=== PATIENT | female | born 1995 | race Caucasian/White ===

== ENCOUNTER 2017-09-19 15:48 | Emergency (ER) | payer OTHER, SELFPAY ==
[2017-09-19 16:00] VITALS: BP 110/65; PULSE 56; RESP 18; TEMP 36.7; O2SAT 99; BMI 26.7
--- NOTE | 2017-09-19 17:00 | ED.PREGNANCY ---
HPI - <EDUARDO Maurer - Last Filed: 09/19/17 23:26> General Chief complaint: OB/Uterine Contractions Stated complaint: POSSIBLE MISCARRIAGE Time Seen by Provider: 09/19/17 16:47 Source: patient and family Mode of arrival: ambulatory Limitations: no limitations History of Present Illness HPI Narrative: Patient stated that she is about 4-5 weeks and started having vaginal bleeding today. Her last period started on August 06 approximately. She has several positive test at home. She states she has noted some light pink in her underwear for the past 2 days and then started a heavier flow today with clots. She denies any lightheadedness or dizziness. This is her 1st . She states she does have some lower belly cramping like is severe menstrual cramps. Related Data Home Medications Medication Instructions Recorded Confirmed PNV cmb#95-ferrous fumarate-FA 1 tab PO DAILY 09/19/17 09/19/17 [] multivitamin 1 tab PO DAILY 09/19/17 09/19/17 Allergies Allergy/AdvReac Type Severity Reaction Status Date / Time No Known Drug Allergies Allergy Verified 09/19/17 16:05 Review of Systems <EDUARDO Maurer - Last Filed: 09/19/17 23:26> Review of Systems GENERAL: Denies chills, fatigue, malaise, fever, sweats. HEENT: Denies sinus pain, ear pain, sore throat, difficulty swallowing, dizziness. RESPIRATORY: Denies dyspnea, cough, wheezing, hemoptysis, sputum. CARDIOVASCULAR: Denies chest pain, palpitations, orthopnea, edema, GASTROINTESTINAL: See HPI : See HPI MUSCULOSKELETAL: denies weakness, joint pain, or bony pain SKIN: Denies rash, skin lesions, or other NEUROLOGIC: Denies weakness, headache, numbness, change in speech, confusion, seizures, incoordination. PSYCHIATRIC: No concerning psychosocial issues. 12 point review of systems is negative except for those stated above Exam <EDUARDO Maurer - Last Filed: 09/19/17 23:26> Narrative Exam Narrative: GENERAL: This is a well-nourished, well-developed patient, crying with at bedside HEAD: Atraumatic. Normocephalic. No temporal or scalp tenderness. EYES: Pupils equal round and reactive. Extraocular motions intact. No scleral icterus. No injection or drainage. ENT: Nose without bleeding, purulent drainage or septal hematoma. Throat without erythema, tonsillar hypertrophy or exudate. Uvula midline. Airway patent. NECK: Trachea midline. No JVD or lymphadenopathy. Supple, nontender, no meningeal signs. CARDIOVASCULAR: Regular rate and rhythm without murmurs, gallops, or rubs. RESPIRATORY: Clear to auscultation. Breath sounds equal bilaterally. No wheezes, rales, or rhonchi. GASTROINTESTINAL: Abdomen soft, no guarding. Slight tenderness to palpation of the suprapubic area. EXTREMITIES: No clubbing, cyanosis, or edema. No joint tenderness, effusion, or edema noted. BACK: Nontender without deformity or crepitance. No flank tenderness. NEURO: AOx3. SKIN: No rash or erythema. Initial Vital Signs Initial Vital Signs: Vital Signs Temperature 98.1 F 09/19/17 16:00 Pulse Rate 56 L 09/19/17 16:00 Respiratory Rate 18 09/19/17 16:00 Blood Pressure 110/65 09/19/17 16:00 Pulse Oximetry 99 09/19/17 16:00 <Mathew Allen DO - Last Filed: 09/20/17 07:00> Initial Vital Signs Initial Vital Signs: Vital Signs Temperature 98.1 F 09/19/17 16:00 Pulse Rate 56 L 09/19/17 16:00 Respiratory Rate 18 09/19/17 16:00 Blood Pressure 110/65 09/19/17 16:00 Pulse Oximetry 99 09/19/17 16:00 Course <DEVANTE Maurer-BC - Last Filed: 09/19/17 23:26> Hospital Course: Patient presented with chief complaint of possible miscarriage. Her vital signs were stable. She had a pelvic ultrasound done which showed no ectopic and no intrauterine . Labs were taken and the patient was shown to be Rh negative. I discussed results and coarse with patient her several times throughout her stay. Patient had no questions or concerns upon discharge. Encouraged using support systems and follow up with primary care. Discussed coming back to the emergency department if any sudden worsening pain or severe vaginal bleeding. Orders Ordered: ED Orders 09/19/17 16:26 Urine Microscopic Stat 09/19/17 17:17 US pelvic complete Stat 09/19/17 17:33 ABO RH Type Stat Complete Blood Count AUTO DIFF Stat HCG Quantitative Stat Vital Signs - 8 hr 09/19/17 16:00 09/19/17 17:30 Temperature 98.1 F Pulse Rate 56 L Respiratory Rate 18 Blood Pressure 110/65 Blood Pressure [Left Arm] 108/64 Pulse Oximetry 99 100 <Mathew Allen DO - Last Filed: 09/20/17 07:00> Orders Ordered: ED Orders 09/19/17 16:26 Urine Microscopic Stat 09/19/17 17:17 US pelvic complete Stat 09/19/17 17:33 ABO RH Type Stat Complete Blood Count AUTO DIFF Stat HCG Quantitative Stat Vital Signs - 8 hr 09/19/17 16:00 09/19/17 17:30 Temperature 98.1 F Pulse Rate 56 L Respiratory Rate 18 Blood Pressure 110/65 Blood Pressure [Left Arm] 108/64 Pulse Oximetry 99 100 MDM - OB/Uterine Contractions <DEVANTE Maurer-BC - Last Filed: 09/19/17 23:26> Lab Data Attestation: I reviewed the patient's lab results. Result diagrams: 09/19/17 17:33 Lab Results 09/19/17 09/19/17 09/19/17 Range/Units 16:26 17:33 17:33 WBC 6.7 (4.5-11.0) X10^3/uL RBC 4.23 (4.0-5.2) X10^6/uL Hgb 12.3 (12.0-16.0) g/dL Hct 36.4 (36-46) % MCV 86.2 (80-100) fL MCH 29.0 (26-34) PG MCHC 33.6 (30-36) % RDW 13.3 (11.6-14.8) % Plt Count 174 (150-400) X10^3/uL Neut % (Auto) 57.4 (50-75) % Lymph % (Auto) 33.0 (25-40) % [place] % (Auto) 7.6 (3-14) % Eos % (Auto) 1.4 L (2-4) % Baso % (Auto) 0.6 (0-2) % Neut # (Auto) 3800 (6086-8012) /uL HCG, Quant 56.72 mIU/mL Urine RBC None seen (0-5/HPF) Urine WBC None seen (0-5/HPF) Urine Bacteria None seen (None) Ur Culture Indicated? Cult not indicated Micro UA Comment Microscopic normal Blood Type 09/19/17 Range/Units 17:33 WBC (4.5-11.0) X10^3/uL RBC (4.0-5.2) X10^6/uL Hgb (12.0-16.0) g/dL Hct (36-46) % MCV (80-100) fL MCH (26-34) PG MCHC (30-36) % RDW (11.6-14.8) % Plt Count (150-400) X10^3/uL Neut % (Auto) (50-75) % Lymph % (Auto) (25-40) % [place] % (Auto) (3-14) % Eos % (Auto) (2-4) % Baso % (Auto) (0-2) % Neut # (Auto) (8064-5392) /uL HCG, Quant mIU/mL Urine RBC (0-5/HPF) Urine WBC (0-5/HPF) Urine Bacteria (None) Ur Culture Indicated? Micro UA Comment Blood Type O Positive Imaging Data pelvic ultrasound: Radiologist's impression: [place] [address] Ultrasound Report Signed Patient: Carol Valdez MR#: [id number] : 1995 Acct:[id number] Age/Sex: 22 / F Date of Service: 09/19/17 Loc: ED Accession Number: [id number] Procedure: US pelvic complete Ordering Provider: Karol Ford [employer]INE [employer]- PROCEDURE: US PELVIC COMPLETE INDICATIONS: bleeding, + preg test TECHNIQUE: Real-time scanning was performed of the pelvic organs, with image documentation. Additional endovaginal scanning was necessary due to incomplete visualization of the adnexal and endometrial structures by transabdominal scanning. COMPARISON: None. FINDINGS: Transabdominal scanning: Limited scanning through the kidneys shows no hydronephrosis. No pathologic free abdominal or pelvic fluid. Small amount of free fluid within the pelvis is felt to be physiologic. Endovaginal scanning: Uterus: Uterus is normal in size at 8.4 x 4.0 x 4.7 cm. The endometrium measures 9 mm in combined thickness. No focal myometrial lesions are evident. Ovaries: The right ovary is mildly enlarged at 4.3 x 2.5 x 3.2 cm. Within the right ovary, there is a 1.9 x 1.5 x 1.5 cm area of decreased echogenicity, which may represent a recently ruptured cyst. The left ovary is normal in size without cystic or solid mass measuring 3.2 x 1.3 x 2.7 cm. IMPRESSION: 1. No intrauterine or extrauterine is evident. Correlation with beta hCG levels is present. A nonvisualized very early cannot be excluded. Please consider followup imaging in 1-2 weeks to reevaluate for viability and positioning. 2. Possible hemorrhagic right ovarian cyst. Dictated by: Oumar Marshall M.D. on 09/19/2017 at 18:23 Approved by: Oumar Marshall M.D. on 09/19/2017 at 18:30 MDM Narrative Medical decision making narrative: Patient presented with vaginal bleeding and 4-5 weeks . No ectopic or intrauterine was seen on ultrasound. Her beta hCG serum came back at 56. An ABO Rh came back as O positive. Thus I did not give her RhoGAM at this point time. I encourage follow up with primary care for future possible blood work or imaging. I discussed coming back to the emergency department if lightheaded, dizzy or sudden severe abdominal pain or severe vaginal bleeding. Her hemoglobin and hematocrit is stable at this point time. Patient has no questions or concerns. Encouraged follow-up with support system sooner better . was at her bedside throughout the visit. <Mathew Allen, - Last Filed: 09/20/17 07:00> Lab Data Lab Results 09/19/17 09/19/17 09/19/17 Range/Units 16:26 17:33 17:33 WBC 6.7 (4.5-11.0) X10^3/uL RBC 4.23 (4.0-5.2) X10^6/uL Hgb 12.3 (12.0-16.0) g/dL Hct 36.4 (36-46) % MCV 86.2 (80-100) fL MCH 29.0 (26-34) PG MCHC 33.6 (30-36) % RDW 13.3 (11.6-14.8) % Plt Count 174 (150-400) X10^3/uL Neut % (Auto) 57.4 (50-75) % Lymph % (Auto) 33.0 (25-40) % [place] % (Auto) 7.6 (3-14) % Eos % (Auto) 1.4 L (2-4) % Baso % (Auto) 0.6 (0-2) % Neut # (Auto) 3800 (8218-6582) /uL HCG, Quant 56.72 mIU/mL Urine RBC None seen (0-5/HPF) Urine WBC None seen (0-5/HPF) Urine Bacteria None seen (None) Ur Culture Indicated? Cult not indicated Micro UA Comment Microscopic normal Blood Type 09/19/17 Range/Units 17:33 WBC (4.5-11.0) X10^3/uL RBC (4.0-5.2) X10^6/uL Hgb (12.0-16.0) g/dL Hct (36-46) % MCV (80-100) fL MCH (26-34) PG MCHC (30-36) % RDW (11.6-14.8) % Plt Count (150-400) X10^3/uL Neut % (Auto) (50-75) % Lymph % (Auto) (25-40) % [place] % (Auto) (3-14) % Eos % (Auto) (2-4) % Baso % (Auto) (0-2) % Neut # (Auto) (3264-1304) /uL HCG, Quant mIU/mL Urine RBC (0-5/HPF) Urine WBC (0-5/HPF) Urine Bacteria (None) Ur Culture Indicated? Micro UA Comment Blood Type O Positive Discharge Plan Departure Patient Disposition: Home, Self-Care Clinical Impression: Spontaneous miscarriage Discharge Date/Time: 09/19/17 18:57 Interventions: ED Discharge Assessment Last Done: 09/19/17 18:56 Instructions: Dealing With Miscarriage, DI for Miscarriage Activity Restrictions/Additional Instructions: You came in today for vaginal bleeding during early . Ultrasound showed no intrauterine or ectopic . I would like you to follow up with your primary care provider. Come back to the emergency department for any severe bleeding, dizziness or lightheadedness. Prescriptions: No Action multivitamin Tablet 1 tab PO DAILY RF: 0 PNV cmb#95-ferrous fumarate-FA [] 28 mg iron- 800 mcg Tablet 1 tab PO DAILY RF: 0 Referrals: Provider,Conversion [Non-Staff] - <Mathew Allen DO - Last Filed: 09/20/17 07:00> Cosign ED Attending Zoey Attestation: I was available for consultation during this patient's emergency department encounter
--- NOTE | 2017-09-19 17:17 | DI.US.S_ITS ---
PROCEDURE: US PELVIC COMPLETE INDICATIONS: bleeding, + preg test TECHNIQUE: Real-time scanning was performed of the pelvic organs, with image documentation. Additional endovaginal scanning was necessary due to incomplete visualization of the adnexal and endometrial structures by transabdominal scanning. COMPARISON: None. FINDINGS: Transabdominal scanning: Limited scanning through the kidneys shows no hydronephrosis. No pathologic free abdominal or pelvic fluid. Small amount of free fluid within the pelvis is felt to be physiologic. Endovaginal scanning: Uterus: Uterus is normal in size at 8.4 x 4.0 x 4.7 cm. The endometrium measures 9 mm in combined thickness. No focal myometrial lesions are evident. Ovaries: The right ovary is mildly enlarged at 4.3 x 2.5 x 3.2 cm. Within the right ovary, there is a 1.9 x 1.5 x 1.5 cm area of decreased echogenicity, which may represent a recently ruptured cyst. The left ovary is normal in size without cystic or solid mass measuring 3.2 x 1.3 x 2.7 cm. IMPRESSION: 1. No intrauterine or extrauterine is evident. Correlation with beta hCG levels is present. A nonvisualized very early cannot be excluded. Please consider followup imaging in 1-2 weeks to reevaluate for viability and positioning. 2. Possible hemorrhagic right ovarian cyst. Dictated by: Oumar Marshall M.D. on 09/19/2017 at 18:23 Approved by: Oumar Marshall M.D. on 09/19/2017 at 18:30
[2017-09-19 17:30] VITALS: BP 108/64; O2SAT 100
[2017-09-19 17:54] LABS: Add Manual Diff / Slide Review NO; Basophils Percent Auto 0.6 % (0-2); Eosinophils Percent Auto 1.4 % (2-4); Hematocrit 36.4 % (36-46); Hemoglobin 12.3 g/dL (12.0-16.0); Mean Corpuscular HGB Conc 33.6 % (30-36); Mean Corpuscular Volume 86.2 fL (80-100); Monocytes Percent Auto 7.6 % (3-14); Neutrophils Absolute Auto 3800 /uL (3000-5900); Neutrophils Percent Auto 57.4 % (50-75); Platelet Count 174 X10^3/uL (150-400); Red Blood Cell Count 4.23 X10^6/uL (4.0-5.2); Red Cell Distribution Width 13.3 % (11.6-14.8); White Blood Cell Count 6.7 X10^3/uL (4.5-11.0)
[2017-09-19 18:22] LABS: HCG Quantitative /Beta subunit 56.72 mIU/mL
[2017-09-19 18:32] LABS: Bacteria Urine None Seen; RBC Urine None Seen (0-5/HPF); WBC Urine None Seen (0-5/HPF)
[2017-09-19 18:39] LABS: Culture Indicated Urine Cult Not Indicated; Urine Comments Microscopic Normal
--- NOTE | 2017-09-19 18:47 | ED_ITS ---
HPI - <EDUARDO Maurer - Last Filed: 09/19/17 23:26> General Chief complaint: OB/Uterine Contractions Stated complaint: POSSIBLE MISCARRIAGE Time Seen by Provider: 09/19/17 16:47 Source: patient and family Mode of arrival: ambulatory Limitations: no limitations History of Present Illness HPI Narrative: Patient stated that she is about 4-5 weeks and started having vaginal bleeding today. Her last period started on August 06 approximately. She has several positive test at home. She states she has noted some light pink in her underwear for the past 2 days and then started a heavier flow today with clots. She denies any lightheadedness or dizziness. This is her 1st . She states she does have some lower belly cramping like is severe menstrual cramps. Related Data Home Medications Medication Instructions Recorded Confirmed PNV cmb#95-ferrous fumarate-FA 1 tab PO DAILY 09/19/17 09/19/17 [] multivitamin 1 tab PO DAILY 09/19/17 09/19/17 Allergies Allergy/AdvReac Type Severity Reaction Status Date / Time No Known Drug Allergies Allergy Verified 09/19/17 16:05 Review of Systems <EDUARDO Maurer - Last Filed: 09/19/17 23:26> Review of Systems GENERAL: Denies chills, fatigue, malaise, fever, sweats. HEENT: Denies sinus pain, ear pain, sore throat, difficulty swallowing, dizziness. RESPIRATORY: Denies dyspnea, cough, wheezing, hemoptysis, sputum. CARDIOVASCULAR: Denies chest pain, palpitations, orthopnea, edema, GASTROINTESTINAL: See HPI : See HPI MUSCULOSKELETAL: denies weakness, joint pain, or bony pain SKIN: Denies rash, skin lesions, or other NEUROLOGIC: Denies weakness, headache, numbness, change in speech, confusion, seizures, incoordination. PSYCHIATRIC: No concerning psychosocial issues. 12 point review of systems is negative except for those stated above Exam <EDUARDO Maurer - Last Filed: 09/19/17 23:26> Narrative Exam Narrative: GENERAL: This is a well-nourished, well-developed patient, crying with at bedside HEAD: Atraumatic. Normocephalic. No temporal or scalp tenderness. EYES: Pupils equal round and reactive. Extraocular motions intact. No scleral icterus. No injection or drainage. ENT: Nose without bleeding, purulent drainage or septal hematoma. Throat without erythema, tonsillar hypertrophy or exudate. Uvula midline. Airway patent. NECK: Trachea midline. No JVD or lymphadenopathy. Supple, nontender, no meningeal signs. CARDIOVASCULAR: Regular rate and rhythm without murmurs, gallops, or rubs. RESPIRATORY: Clear to auscultation. Breath sounds equal bilaterally. No wheezes , rales, or rhonchi. GASTROINTESTINAL: Abdomen soft, no guarding. Slight tenderness to palpation of the suprapubic area. EXTREMITIES: No clubbing, cyanosis, or edema. No joint tenderness, effusion, or edema noted. BACK: Nontender without deformity or crepitance. No flank tenderness. NEURO: AOx3. SKIN: No rash or erythema. Initial Vital Signs Initial Vital Signs: Vital Signs Temperature 98.1 F 09/19/17 16:00 Pulse Rate 56 L 09/19/17 16:00 Respiratory Rate 18 09/19/17 16:00 Blood Pressure 110/65 09/19/17 16:00 Pulse Oximetry 99 09/19/17 16:00 <Mathew Allen DO - Last Filed: 09/20/17 07:00> Initial Vital Signs Initial Vital Signs: Vital Signs Temperature 98.1 F 09/19/17 16:00 Pulse Rate 56 L 09/19/17 16:00 Respiratory Rate 18 09/19/17 16:00 Blood Pressure 110/65 09/19/17 16:00 Pulse Oximetry 99 09/19/17 16:00 Course <DEVANTE Maurer-BC - Last Filed: 09/19/17 23:26> Hospital Course: Patient presented with chief complaint of possible miscarriage. Her vital signs were stable. She had a pelvic ultrasound done which showed no ectopic and no intrauterine . Labs were taken and the patient was shown to be Rh negative. I discussed results and coarse with patient her several times throughout her stay. Patient had no questions or concerns upon discharge. Encouraged using support systems and follow up with primary care. Discussed coming back to the emergency department if any sudden worsening pain or severe vaginal bleeding. Orders Ordered: ED Orders 09/19/17 16:26 Urine Microscopic Stat 09/19/17 17:17 US pelvic complete Stat 09/19/17 17:33 ABO RH Type Stat Complete Blood Count AUTO DIFF Stat HCG Quantitative Stat Vital Signs - 8 hr 09/19/17 16:00 09/19/17 17:30 Temperature 98.1 F Pulse Rate 56 L Respiratory Rate 18 Blood Pressure 110/65 Blood Pressure [Left Arm] 108/64 Pulse Oximetry 99 100 <Mathew Allen DO - Last Filed: 09/20/17 07:00> Orders Ordered: ED Orders 09/19/17 16:26 Urine Microscopic Stat 09/19/17 17:17 US pelvic complete Stat 09/19/17 17:33 ABO RH Type Stat Complete Blood Count AUTO DIFF Stat HCG Quantitative Stat Vital Signs - 8 hr 09/19/17 16:00 09/19/17 17:30 Temperature 98.1 F Pulse Rate 56 L Respiratory Rate 18 Blood Pressure 110/65 Blood Pressure [Left Arm] 108/64 Pulse Oximetry 99 100 MDM - OB/Uterine Contractions <DEVANTE Maurer-BC - Last Filed: 09/19/17 23:26> Lab Data Attestation: I reviewed the patient's lab results. Result diagrams: 09/19/17 17:33 Lab Results 09/19/17 09/19/17 09/19/17 Range/Units 16:26 17:33 17:33 WBC 6.7 (4.5-11.0) X10^3/uL RBC 4.23 (4.0-5.2) X10^6/uL Hgb 12.3 (12.0-16.0) g/dL Hct 36.4 (36-46) % MCV 86.2 (80-100) fL MCH 29.0 (26-34) PG MCHC 33.6 (30-36) % RDW 13.3 (11.6-14.8) % Plt Count 174 (150-400) X10^3/uL Neut % (Auto) 57.4 (50-75) % Lymph % (Auto) 33.0 (25-40) % [place] % (Auto) 7.6 (3-14) % Eos % (Auto) 1.4 L (2-4) % Baso % (Auto) 0.6 (0-2) % Neut # (Auto) 3800 (8806-4651) /uL HCG, Quant 56.72 mIU/mL Urine RBC None seen (0-5/HPF) Urine WBC None seen (0-5/HPF) Urine Bacteria None seen (None) Ur Culture Indicated? Cult not indicated Micro UA Comment Microscopic normal Blood Type 09/19/17 Range/Units 17:33 WBC (4.5-11.0) X10^3/uL RBC (4.0-5.2) X10^6/uL Hgb (12.0-16.0) g/dL Hct (36-46) % MCV (80-100) fL MCH (26-34) PG MCHC (30-36) % RDW (11.6-14.8) % Plt Count (150-400) X10^3/uL Neut % (Auto) (50-75) % Lymph % (Auto) (25-40) % [place] % (Auto) (3-14) % Eos % (Auto) (2-4) % Baso % (Auto) (0-2) % Neut # (Auto) (2563-9809) /uL HCG, Quant mIU/mL Urine RBC (0-5/HPF) Urine WBC (0-5/HPF) Urine Bacteria (None) Ur Culture Indicated? Micro UA Comment Blood Type O Positive Imaging Data pelvic ultrasound: Radiologist's impression: [place] [address] Ultrasound Report Signed Patient: Carol Valdez MR#: [id number] : 1995 Acct:[id number] Age/Sex: 22 / F Date of Service: 09/19/17 Loc: ED Accession Number: [id number] Procedure: US pelvic complete Ordering Provider: Karol Ford [employer]- PROCEDURE: US PELVIC COMPLETE INDICATIONS: bleeding, + preg test TECHNIQUE: Real-time scanning was performed of the pelvic organs, with image documentation. Additional endovaginal scanning was necessary due to incomplete visualization of the adnexal and endometrial structures by transabdominal scanning. COMPARISON: None. FINDINGS: Transabdominal scanning: Limited scanning through the kidneys shows no hydronephrosis. No pathologic free abdominal or pelvic fluid. Small amount of free fluid within the pelvis is felt to be physiologic. Endovaginal scanning: Uterus: Uterus is normal in size at 8.4 x 4.0 x 4.7 cm. The endometrium measures 9 mm in combined thickness. No focal myometrial lesions are evident. Ovaries: The right ovary is mildly enlarged at 4.3 x 2.5 x 3.2 cm. Within the right ovary, there is a 1.9 x 1.5 x 1.5 cm area of decreased echogenicity, which may represent a recently ruptured cyst. The left ovary is normal in size without cystic or solid mass measuring 3.2 x 1.3 x 2.7 cm. IMPRESSION: 1. No intrauterine or extrauterine is evident. Correlation with beta hCG levels is present. A nonvisualized very early cannot be excluded. Please consider followup imaging in 1-2 weeks to reevaluate for viability and positioning. 2. Possible hemorrhagic right ovarian cyst. Dictated by: Oumar Marshall M.D. on 09/19/2017 at 18:23 Approved by: Oumar Marshall M.D. on 09/19/2017 at 18:30 MDM Narrative Medical decision making narrative: Patient presented with vaginal bleeding and 4 -5 weeks . No ectopic or intrauterine was seen on ultrasound. Her beta hCG serum came back at 56. An ABO Rh came back as O positive. Thus I did not give her RhoGAM at this point time. I encourage follow up with primary care for future possible blood work or imaging. I discussed coming back to the emergency department if lightheaded, dizzy or sudden severe abdominal pain or severe vaginal bleeding. Her hemoglobin and hematocrit is stable at this point time. Patient has no questions or concerns. Encouraged follow-up with support system sooner better . was at her bedside throughout the visit. <Mathew Allen, - Last Filed: 09/20/17 07:00> Lab Data Lab Results 09/19/17 09/19/17 09/19/17 Range/Units 16:26 17:33 17:33 WBC 6.7 (4.5-11.0) X10^3/uL RBC 4.23 (4.0-5.2) X10^6/uL Hgb 12.3 (12.0-16.0) g/dL Hct 36.4 (36-46) % MCV 86.2 (80-100) fL MCH 29.0 (26-34) PG MCHC 33.6 (30-36) % RDW 13.3 (11.6-14.8) % Plt Count 174 (150-400) X10^3/uL Neut % (Auto) 57.4 (50-75) % Lymph % (Auto) 33.0 (25-40) % [place] % (Auto) 7.6 (3-14) % Eos % (Auto) 1.4 L (2-4) % Baso % (Auto) 0.6 (0-2) % Neut # (Auto) 3800 (2662-4465) /uL HCG, Quant 56.72 mIU/mL Urine RBC None seen (0-5/HPF) Urine WBC None seen (0-5/HPF) Urine Bacteria None seen (None) Ur Culture Indicated? Cult not indicated Micro UA Comment Microscopic normal Blood Type 09/19/17 Range/Units 17:33 WBC (4.5-11.0) X10^3/uL RBC (4.0-5.2) X10^6/uL Hgb (12.0-16.0) g/dL Hct (36-46) % MCV (80-100) fL MCH (26-34) PG MCHC (30-36) % RDW (11.6-14.8) % Plt Count (150-400) X10^3/uL Neut % (Auto) (50-75) % Lymph % (Auto) (25-40) % [place] % (Auto) (3-14) % Eos % (Auto) (2-4) % Baso % (Auto) (0-2) % Neut # (Auto) (6457-6399) /uL HCG, Quant mIU/mL Urine RBC (0-5/HPF) Urine WBC (0-5/HPF) Urine Bacteria (None) Ur Culture Indicated? Micro UA Comment Blood Type O Positive Discharge Plan Departure Patient Disposition: Home, Self-Care Clinical Impression: Spontaneous miscarriage Discharge Date/Time: 09/19/17 18:57 Interventions: ED Discharge Assessment Last Done: 09/19/17 18:56 Instructions: Dealing With Miscarriage, DI for Miscarriage Activity Restrictions/Additional Instructions: You came in today for vaginal bleeding during early . Ultrasound showed no intrauterine or ectopic . I would like you to follow up with your primary care provider. Come back to the emergency department for any severe bleeding, dizziness or lightheadedness. Prescriptions: No Action multivitamin Tablet 1 tab PO DAILY RF: 0 PNV cmb#95-ferrous fumarate-FA [] 28 mg iron- 800 mcg Tablet 1 tab PO DAILY RF: 0 Referrals: Provider,Conversion [Non-Staff] - <Mathew Allen DO - Last Filed: 09/20/17 07:00> Cosign ED Attending Zoey Attestation: I was available for consultation during this patient's emergency department encounter
== END 2017-09-19 18:57 | disposition home or self-care (01) ==
PROVIDERS: Emergency Provider Nurse Practitioner Family
DX: O03.9 Complete or unspecified spontaneous abortion without complication (principal)
CPT/HCPCS: 76830; 76856; 81003; 81015; 81025; 84702; 85025; 86900; 86901; 99282; 99284

== ENCOUNTER → 2017-12-10 17:23 | Outpatient (CLI) | payer OTHER, SELFPAY ==
[2017-12-10 17:57] LABS: Add Manual Diff / Slide Review NO; Basophils Percent Auto 0.6 % (0-2); Hematocrit 38.4 % (36-46); Hemoglobin 12.9 g/dL (12.0-16.0); Lymphocytes Percent Auto 22.2 % (25-40); Mean Corpuscular HGB Conc 33.5 % (30-36); Mean Corpuscular Volume 86.5 fL (80-100); Monocytes Percent Auto 7.3 % (3-14); Neutrophils Absolute Auto 7700 /uL (3000-5900); Neutrophils Percent Auto 68.9 % (50-75); Platelet Count 179 X10^3/uL (150-400); Red Blood Cell Count 4.43 X10^6/uL (4.0-5.2); Red Cell Distribution Width 12.7 % (11.6-14.8); White Blood Cell Count 11.1 X10^3/uL (4.5-11.0)
[2017-12-10 18:11] LABS: Appearance Urine UA CLEAR; Bilirubin Urine UA NEGATIVE (NEGATIVE); Color Urine UA YELLOW; Glucose Urine UA NEGATIVE (Normal); Ketones Urine UA TRACE (NEGATIVE); Leukocyte Esterase Urine UA NEGATIVE (NEGATIVE); Nitrite Urine UA Negative (Negative); Occult Blood Urine UA NEGATIVE (Negative); Protein Urine UA NEGATIVE (Negative); Specific Gravity Urine UA 1.025 (1.000-1.035); Urobilinogen Urine UA 0.2 E.U./dL (0.2)
[2017-12-10 18:54] LABS: Hepatitis B Surface Antigen NEGATIVE s/c (NEGATIVE); Rubella Antibody IgG 1.9 IU/mL (>15)
[2017-12-10 19:00] LABS: HCG Quantitative /Beta subunit 105800 mIU/mL
[2017-12-10 19:09] LABS: HIV 1 and 2 Antibody NEGATIVE (NEGATIVE); Hep C Virus Ab w/Reflex Quant NEGATIVE s/c (NEGATIVE)
[2017-12-12 14:06] LABS: HSV 2 IGG AB < 0.90 index (< 0.90); HSV1IGG < 0.90 index (< 0.90)
[2017-12-13 12:25] LABS: Rapid Plasma Reagin NON-REACTIVE
== END ==
PROVIDERS: PCP Internal Medicine; Visit Provider Specialist
DX: Z34.01 Encounter for supervision of normal first pregnancy, first trimester (principal); Z3A.01 Less than 8 weeks gestation of pregnancy; N91.2 Amenorrhea, unspecified
CPT/HCPCS: 36415; 80055; 81003; 84702; 86695; 86696; 86703; 86787; 86803; 86850; 86900; 86901; 87077; 87086

== ENCOUNTER → 2017-12-25 14:45 | Outpatient (CLI) | payer OTHER, SELFPAY | DX: Z23 Encounter for immunization (principal) | CPT/HCPCS: 90471; 90686 ==

== ENCOUNTER → 2018-02-05 10:58 | Outpatient (CLI) | payer OTHER, SELFPAY ==
[2018-02-11 13:22] LABS: AFP, Serum 27.9 ng/mL; Calc Gestational Age 15.6; Cigarette Smoker N; Donated Egg NOT GIVEN; Donor Egg Age NOT GIVEN; Estriol, Free 0.63 ng/mL; Inhibin A, Dimeric 212 pg/mL; Maternal Ethnicity CAUCASIAN; Maternal Weight 166 lbs; Number of Fetuses NOT GIVEN; Previous Pregnancy Down Syndro N; hCG, MoM 1.06; hCG, Serum 38.1 IU/mL
== END ==
PROVIDERS: Family Provider Specialist; PCP Internal Medicine; Visit Provider Family Medicine
DX: Z34.02 Encounter for supervision of normal first pregnancy, second trimester (principal); Z3A.15 15 weeks gestation of pregnancy
CPT/HCPCS: 36415; 82105; 82677; 84702; 86336

== ENCOUNTER → 2018-03-13 08:12 | Outpatient (CLI) | payer OTHER, SELFPAY ==
--- NOTE | 2018-03-13 08:14 | DI.US.S_ITS ---
PROCEDURE: US OB >= 14 WEEKS FETUS INDICATIONS: ANATOMIC SURVEY OUTSIDE/PRIOR DATING DATA: Last menstrual period (LMP): Unknown. LMP-based estimated date of delivery (AIDA): N./A.. First dating scan (date and location): 12/14/17. Estimated date of delivery (AIDA) from first dating scan: 07/26/18. TECHNIQUE: Real-time scanning was performed of the fetus, with image documentation and biometric measurements. Endovaginal scanning: No COMPARISON: [employer] [facility], , OB >= 14 WEEKS FETUS, 03/04/2018, 11:11. FINDINGS: General: A single living intrauterine gestation is present. Presentation: Vertex. Placenta: Placental position is anterior, without previa. Amniotic fluid index: 13.2 cm, normal range is 5-24 cm. heart rate: 153 beats per minute. Maternal cervical canal: 4.1 cm long. Normal lower limit is 2.5 cm. biometrics: Biparietal diameter: 20 weeks 2 days Head circumference: 20 weeks 2 days Abdominal circumference: 20 weeks 1 day Femur length: 20 weeks 6 days Estimated gestational age from initial scan: 20 weeks 5 days Composite gestational age from present scan: 20 weeks 3 days Estimated weight and percentile: 352 g; 29th percentile Measurement variability for biometric dating: +/- 7 days from 14 weeks to 15 weeks 6 days gestation, +/- 10 days from 16 weeks to 21 weeks 6 days gestation, +/- 2 weeks from 22 weeks to 27 weeks 6 days gestation, +/- 3 weeks for 28 weeks gestation or later. weight reference: 4500 g or EFW >90/95% is considered macrosomia or large for gestational age. EFW <10% is small for gestational age. EFW 5% or less is considered intra-uterine growth restriction. Anatomic survey: Neuro: Ventricles are non-dilated at less than 10 mm. Cisterna magna is normal at 3-11 mm. Cerebellum is normal in size and morphology. Nuchal skin fold: Normal at less than 6 mm between 14-21 weeks gestational age. Face: Nose and lips, facial profile are normal. Spine: No evidence for spina bifida. Heart: 4-chambered heart is present, with normal ventricular outflow tracts. Solitary left ventricular intracardiac focus. Diaphragm: Diaphragm is intact. Stomach: Left-sided stomach is present. Kidneys: No hydronephrosis. Normal is less than 5 mm in 2nd trimester, less than 7 mm in 3rd trimester. Cord: 3-vessel cord has orthotopic insertion. Bladder: Normal in size. Extremities: All 4 extremities identified. IMPRESSION: 1. Single living IUP redemonstrated and interval growth is normal. 2. Echogenic intracardiac focus: 1.4-1.8 fold likelihood of Down syndrome. If isolated finding, consider aneuploidy screening with cell-free DNA. If aneuploidy screen is negative, no further evaluation needed. Anatomic survey otherwise normal. Dictated by: Otf Billings [facility] Interpreted: Rajwinder Holman MD on 03/13/2018 at 10:36 Approved by: Rajwinder Holman MD, PhD on 03/13/2018 at 10:59
== END ==
PROVIDERS: Family Provider Specialist; PCP Internal Medicine; Visit Provider Family Medicine
DX: Z34.02 Encounter for supervision of normal first pregnancy, second trimester (principal); Z3A.20 20 weeks gestation of pregnancy
CPT/HCPCS: 76811

== ENCOUNTER → 2018-04-05 13:01 | Outpatient (CLI) | payer OTHER, SELFPAY | PROVIDERS: Family Provider Specialist; PCP Internal Medicine; Visit Provider Specialist | DX: R21 Rash and other nonspecific skin eruption (principal); Z33.1 Pregnant state, incidental; Z3A.23 23 weeks gestation of pregnancy | CPT/HCPCS: 36415 ==

== ENCOUNTER → 2018-04-08 07:06 | Outpatient (CLI) | payer OTHER, SELFPAY ==
[2018-04-08 07:52] LABS: Alanine Aminotransferase 33 IU/L (9-52); Albumin 3.9 g/dL (3.5-5.0); Albumin Globulin Ratio 1.3 (1.0-2.8); Alkaline Phosphatase 62 U/L (38-126); Aspartate Aminotransferase 21 IU/L (14-36); Bilirubin Total 0.2 mg/dL (0.2-1.3); Blood Urea Nitrogen 9 mg/dL (7-17); Calcium 8.9 mg/dL (8.4-10.2); Carbon Dioxide 24 mmol/L (22-32); Chloride 104 mmol/L (98-107); Estimated Glomerular Filt Rate > 60.0 mL/min (>60); Glucose 75 mg/dL (70-100); HEMOLYSIS < 15 (0-50); Potassium 3.8 mmol/L (3.4-5.1); Sodium 136 mmol/L (137-145); Total Protein 6.9 g/dL (6.3-8.2)
[2018-04-11 13:49] LABS: Bile Acids, Total 4.2 umol/L (< 10.1)
== END ==
PROVIDERS: Family Provider Specialist; PCP Internal Medicine; Visit Provider Specialist
DX: R21 Rash and other nonspecific skin eruption (principal); Z33.1 Pregnant state, incidental; Z3A.23 23 weeks gestation of pregnancy
CPT/HCPCS: 36415; 80053; 82239

== ENCOUNTER → 2018-05-08 12:04 | Outpatient (CLI) | payer OTHER, SELFPAY ==
[2018-05-08 15:03] LABS: Hematocrit 36.3 % (36-46); Hemoglobin 12.2 g/dL (12.0-16.0)
[2018-05-08 16:34] LABS: GTT (PREG) 1 Hour PP 50gm Dose 106 mg/dL (76-139)
== END ==
PROVIDERS: Family Provider Specialist; PCP Internal Medicine; Visit Provider Specialist
DX: Z34.93 Encounter for supervision of normal pregnancy, unspecified, third trimester (principal); Z3A.28 28 weeks gestation of pregnancy
CPT/HCPCS: 36415; 82950; 85014; 85018

== ENCOUNTER → 2018-07-04 14:29 | Outpatient (CLI) | payer OTHER, SELFPAY ==
[2018-07-05 12:07] LABS: Strep Grp B PCR NEG for Grp B Strep
== END ==
PROVIDERS: Family Provider Specialist; PCP Internal Medicine; Visit Provider Specialist
DX: Z34.83 Encounter for supervision of other normal pregnancy, third trimester (principal); Z3A.36 36 weeks gestation of pregnancy
CPT/HCPCS: 87653

== ENCOUNTER 2018-07-04 14:51 | Outpatient (CLI) | payer OTHER, SELFPAY ==
--- NOTE | 2018-07-04 15:45 | P.TNLD_ITS ---
Visit Information Visit Information Date of evaluation: 07/04/18 Primary OB Provider: Tamie Moreno Reason for Evaluation: Yes non-stress test [facility] Medical History (Updated 07/04/18 @ 15:44 by Tamie Moreno MD) Anemia (Chronic ~2004) Heavy menstrual period (Chronic ~2004) Fracture (Resolved ~2006) Surgical History (Updated 11/01/17 @ 19:31 by Yulissa Trevizo) [place] teeth extracted (Resolved) Family History (Updated 11/01/17 @ 19:42 by Yulissa Trevizo) Father Brain trauma Mother History of seizures Grandfather Cancer Grandmother Diabetes mellitus Arthritis Grandfather Stroke Grandmother Diabetes mellitus Osteoporosis Social History Smoking Status: Never smoker Family History (Updated 11/01/17 @ 19:42 by Yulissa Trevizo) Father Brain trauma Mother History of seizures Grandfather Cancer Grandmother Diabetes mellitus Arthritis Grandfather Stroke Grandmother Diabetes mellitus Osteoporosis Social History Smoking Status: Never smoker Evaluation Evaluation Baseline heart rate: 130 Variability: Moderate (11-25) monitor accelerations: Present monitor decelerations: Absent Category of Tracing: I Diagnosis, Plan/Disposition Final Diagnosis (1) anomaly: Current Visit: Yes Status: Acute (2) 36 weeks gestation of : Current Visit: Yes Status: Acute Plan/Disposition Plan: Reactive nonstress test. Weekly nonstress tests and OB visits with biophysical profile. OB Disposition: home
== END 2018-07-04 15:50 | disposition home or self-care (01) ==
LOC: LABOR 15:15 → OB 07-09 12:23
PROVIDERS: PCP Internal Medicine; Visit Provider Specialist
DX: O35.8XX0 Maternal care for other (suspected) fetal abnormality and damage, not applicable or unspecified (principal); Z3A.36 36 weeks gestation of pregnancy
CPT/HCPCS: 59025; 87653; G0378; G0379

== ENCOUNTER 2018-07-18 12:42 | Outpatient (CLI) | payer OTHER, SELFPAY ==
--- NOTE | 2018-07-18 13:23 | PM.OBTRLD ---
Visit Information Visit Information Date of evaluation: 07/18/18 Primary OB Provider: Tamie Moreno Reason for Evaluation: Yes non-stress test non-stress test reason: other ( malformation) [facility] Medical History (Updated 07/18/18 @ 13:25 by Tamie Moreno MD) Anemia (Chronic ~2004) Heavy menstrual period (Chronic ~2004) Fracture (Resolved ~2006) Surgical History (Updated 11/01/17 @ 19:31 by Yulissa Trevizo) [place] teeth extracted (Resolved) Family History (Updated 11/01/17 @ 19:42 by Yulissa Trevizo) Father Brain trauma Mother History of seizures Grandfather Cancer Grandmother Diabetes mellitus Arthritis Grandfather Stroke Grandmother Diabetes mellitus Osteoporosis Social History Smoking Status: Never smoker Family History (Updated 11/01/17 @ 19:42 by Yulissa Trevizo) Father Brain trauma Mother History of seizures Grandfather Cancer Grandmother Diabetes mellitus Arthritis Grandfather Stroke Grandmother Diabetes mellitus Osteoporosis Social History Smoking Status: Never smoker Evaluation Evaluation Baseline heart rate: 120 Variability: Moderate (11-25) monitor accelerations: Present monitor decelerations: Absent Contraction Frequency (minutes): 0 Diagnosis, Plan/Disposition Final Diagnosis (1) anomaly: Current Visit: No Status: Acute Problem details: Posterior mediastinal cyst (2) 37 weeks gestation of : Current Visit: Yes Status: Acute Plan/Disposition Plan: Reactive nonstress test continue weekly monitoring OB Disposition: home
--- NOTE | 2018-07-18 13:26 | P.TNLD_ITS ---
Visit Information Visit Information Date of evaluation: 07/18/18 Primary OB Provider: Tamie Moreno Reason for Evaluation: Yes non-stress test non-stress test reason: other ( malformation) [facility] Medical History (Updated 07/18/18 @ 13:25 by Tamie Moreno MD) Anemia (Chronic ~2004) Heavy menstrual period (Chronic ~2004) Fracture (Resolved ~2006) Surgical History (Updated 11/01/17 @ 19:31 by Yulissa Trevizo) [place] teeth extracted (Resolved) Family History (Updated 11/01/17 @ 19:42 by Yulissa Trevizo) Father Brain trauma Mother History of seizures Grandfather Cancer Grandmother Diabetes mellitus Arthritis Grandfather Stroke Grandmother Diabetes mellitus Osteoporosis Social History Smoking Status: Never smoker Family History (Updated 11/01/17 @ 19:42 by Yulissa Trevizo) Father Brain trauma Mother History of seizures Grandfather Cancer Grandmother Diabetes mellitus Arthritis Grandfather Stroke Grandmother Diabetes mellitus Osteoporosis Social History Smoking Status: Never smoker Evaluation Evaluation Baseline heart rate: 120 Variability: Moderate (11-25) monitor accelerations: Present monitor decelerations: Absent Contraction Frequency (minutes): 0 Diagnosis, Plan/Disposition Final Diagnosis (1) anomaly: Current Visit: No Status: Acute Problem details: Posterior mediastinal cyst (2) 37 weeks gestation of : Current Visit: Yes Status: Acute Plan/Disposition Plan: Reactive nonstress test continue weekly monitoring OB Disposition: home
== END 2018-07-18 13:28 | disposition home or self-care (01) ==
LOC: LABOR 13:27 → OB 07-22 15:13
PROVIDERS: PCP Internal Medicine; Visit Provider Specialist
DX: O35.9XX0 Maternal care for (suspected) fetal abnormality and damage, unspecified, not applicable or unspecified (principal); Z3A.37 37 weeks gestation of pregnancy
CPT/HCPCS: 59025; G0378; G0379

== ENCOUNTER 2018-07-29 09:39 | Outpatient (CLI) | payer OTHER, SELFPAY ==
--- NOTE | 2018-07-29 10:25 | PM.OBTRLD ---
Visit Information Visit Information Date of evaluation: 07/29/18 Primary OB Provider: Tamie Moreno Reason for Evaluation: Yes non-stress test non-stress test reason: other (Postdates) [facility] Medical History (Updated 07/29/18 @ 10:26 by Tamie Moreno MD) Anemia (Chronic ~2004) Heavy menstrual period (Chronic ~2004) Fracture (Resolved ~2006) Surgical History (Updated 11/01/17 @ 19:31 by Yulissa Trevizo) [place] teeth extracted (Resolved) Family History (Updated 11/01/17 @ 19:42 by Yulissa Trevizo) Father Brain trauma Mother History of seizures Grandfather Cancer Grandmother Diabetes mellitus Arthritis Grandfather Stroke Grandmother Diabetes mellitus Osteoporosis Social History Smoking Status: Never smoker Family History (Updated 11/01/17 @ 19:42 by Yulissa Trevizo) Father Brain trauma Mother History of seizures Grandfather Cancer Grandmother Diabetes mellitus Arthritis Grandfather Stroke Grandmother Diabetes mellitus Osteoporosis Social History Smoking Status: Never smoker Evaluation Evaluation Baseline heart rate: 140 Variability: Moderate (11-25) monitor accelerations: Present monitor decelerations: Absent Contraction Frequency (minutes): 0 Category of Tracing: I Diagnosis, Plan/Disposition Final Diagnosis (1) 40 weeks gestation of : Current Visit: Yes Status: Acute Plan/Disposition Plan: Labor, rupture membranes, and decreased movement precautions reviewed with the patient. She is scheduled for induction 07/31/2018 OB Disposition: home
== END 2018-07-29 10:27 | disposition home or self-care (01) ==
LOC: OB 07-30 06:57
PROVIDERS: PCP Internal Medicine; Visit Provider Specialist
DX: O48.0 Post-term pregnancy (principal); Z3A.40 40 weeks gestation of pregnancy
CPT/HCPCS: 59025; G0378; G0379

== ENCOUNTER 2018-07-31 06:50 | Inpatient (IN) | payer OTHER, SELFPAY ==
[2018-07-31 07:53] VITALS: BP 108/59
--- NOTE | 2018-07-31 08:01 | PM.OBHP.1 ---
OB HPI Date/Time Date of admission: 07/31/18 Date Patient Seen: 07/31/18 Time Patient Seen: 08:08 History of Present Condition Chief complaint: OBS : 2 Para: 0 Estimated Date of Delivery: 07/26/18 Estimated Gestational Age (weeks): 40 Narrative: Carol Valdez is a 22 year old female admitted for induction Indications Indication for induction OB: other (Term with malformation) History of Present care: good care, initiated at week # (8), number of visits (14) and pounds weight gain (35) Dating criteria: LMP confirmed by 1st trimester US Ultrasounds: abnormal US findings (Posterior mediastinal cyst) Obstetrical complications: none Medical complications: other (PUPP) Preadmission Labs Blood type: O (+) positive -: Antibody screen: negative, GBS status: negative, HBsAG: negative, HIV: negative, HSV 1: negative, HSV 2: negative and RPR/VDLR: negative -: Rubella: not immune and Varicella: immune HCAB: negative PAP: Normal (2017) Quad screen: Normal 1 hr GTT: 106 Evaluation Evaluation Baseline heart rate: 135 Variability: Moderate (11-25) monitor accelerations: Present monitor decelerations: Absent Contraction Frequency (minutes): 0 Category of Tracing: I Cervical dilation (cm): 2 Cervical effacement (%): 80 station: -2 [facility] Medical History (Updated 07/29/18 @ 10:26 by Tamie Moreno MD) Anemia (Chronic ~2004) Heavy menstrual period (Chronic ~2004) Fracture (Resolved ~2006) Surgical History (Updated 11/01/17 @ 19:31 by Yulissa Trevizo) [place] teeth extracted (Resolved) Family History (Updated 11/01/17 @ 19:42 by Yulissa Trevizo) Father Brain trauma Mother History of seizures Grandfather Cancer Grandmother Diabetes mellitus Arthritis Grandfather Stroke Grandmother Diabetes mellitus Osteoporosis Social History Smoking Status: Never smoker Family History (Updated 11/01/17 @ 19:42 by Yulissa Trevizo) Father Brain trauma Mother History of seizures Grandfather Cancer Grandmother Diabetes mellitus Arthritis Grandfather Stroke Grandmother Diabetes mellitus Osteoporosis Social History Smoking Status: Never smoker Meds Home Medications Medication Instructions Recorded Confirmed Type omega-3 fatty acids 1,000 mg 1,000 mg PO DAILY 12/10/17 07/31/18 History capsule 1 tab PO DAILY 12/10/17 07/31/18 History vitamin,calcium,mnhqfrwa-styv-axagx acid tablet breast pump #1 each 06/25/18 07/31/18 Rx Allergies Allergy/AdvReac Type Severity Reaction Status Date / Time No Known Drug Allergies Allergy Verified 12/10/17 13:54 Review of Systems Review of Systems Patient with mild headache but thinks due to the lack of sleep. No other signs or symptoms of preeclampsia. Good movement. No leakage of fluid. All systems reviewed & are unremarkable except as noted in HPI and below Exam Vital Signs (past 8 hours): Blood pressure 108/59, pulse of 86, temperature 97.4?- 07/31/18 07:53 Blood Pressure 108/59 L Narrative Exam Narrative: HEENT exam within normal limits. Lungs are clear to auscultation percussion. Heart is regular rate and rhythm no S3-S4 or murmurs. Abdomen is soft, nontender with vertex . Extremities without edema and nontender. Objective Labs Result Diagrams: 07/31/18 07:45 Assessment and Plan Assessment and Plan Assessment and Plan narrative: Forty week 5 day gestation admitted for induction. Fetus has a posterior mediastinal cyst. She has had echo and consultation with Pediatric surgery Dr. Domenic Jennings. He will see the baby post . If the baby has need for transport the baby is to go to [facility]. Time Spent with Patient Total time spent with greater than 50% in coordination of care (as documented) at patient's floor/unit and/or counseling patient:: less than 15 minutes
--- NOTE | 2018-07-31 08:11 | P.HPOB_ITS ---
OB HPI Date/Time Date of admission: 07/31/18 Date Patient Seen: 07/31/18 Time Patient Seen: 08:08 History of Present Condition Chief complaint: OBS : 2 Para: 0 Estimated Date of Delivery: 07/26/18 Estimated Gestational Age (weeks): 40 Narrative: Carol Valdez is a 22 year old female admitted for induction Indications Indication for induction OB: other (Term with malformation) History of Present care: good care, initiated at week # (8), number of visits (14) and pounds weight gain (35) Dating criteria: LMP confirmed by 1st trimester US Ultrasounds: abnormal US findings (Posterior mediastinal cyst) Obstetrical complications: none Medical complications: other (PUPP) Preadmission Labs Blood type: O (+) positive -: Antibody screen: negative, GBS status: negative, HBsAG: negative, HIV: negative, HSV 1: negative, HSV 2: negative and RPR/VDLR: negative -: Rubella: not immune and Varicella: immune HCAB: negative PAP: Normal (2017) Quad screen: Normal 1 hr GTT: 106 Evaluation Evaluation Baseline heart rate: 135 Variability: Moderate (11-25) monitor accelerations: Present monitor decelerations: Absent Contraction Frequency (minutes): 0 Category of Tracing: I Cervical dilation (cm): 2 Cervical effacement (%): 80 station: -2 [facility] Medical History (Updated 07/29/18 @ 10:26 by Tamie Moreno MD) Anemia (Chronic ~2004) Heavy menstrual period (Chronic ~2004) Fracture (Resolved ~2006) Surgical History (Updated 11/01/17 @ 19:31 by Yulissa Trevizo) [place] teeth extracted (Resolved) Family History (Updated 11/01/17 @ 19:42 by Yulissa Trevizo) Father Brain trauma Mother History of seizures Grandfather Cancer Grandmother Diabetes mellitus Arthritis Grandfather Stroke Grandmother Diabetes mellitus Osteoporosis Social History Smoking Status: Never smoker Family History (Updated 11/01/17 @ 19:42 by Yulissa Trevizo) Father Brain trauma Mother History of seizures Grandfather Cancer Grandmother Diabetes mellitus Arthritis Grandfather Stroke Grandmother Diabetes mellitus Osteoporosis Social History Smoking Status: Never smoker Meds Home Medications Medication Instructions Recorded Confirmed Type omega-3 fatty acids 1,000 mg 1,000 mg PO DAILY 12/10/17 07/31/18 History capsule 1 tab PO DAILY 12/10/17 07/31/18 History vitamin,calcium,emcvnsqo-zoua-blkhm acid tablet breast pump #1 each 06/25/18 07/31/18 Rx Allergies Allergy/AdvReac Type Severity Reaction Status Date / Time No Known Drug Allergies Allergy Verified 12/10/17 13:54 Review of Systems Review of Systems Patient with mild headache but thinks due to the lack of sleep. No other signs or symptoms of preeclampsia. Good movement. No leakage of fluid. All systems reviewed & are unremarkable except as noted in HPI and below Exam Vital Signs (past 8 hours): Blood pressure 108/59, pulse of 86, temperature 97.4?- 07/31/18 07:53 Blood Pressure 108/59 L Narrative Exam Narrative: HEENT exam within normal limits. Lungs are clear to auscultation percussion. Heart is regular rate and rhythm no S3-S4 or murmurs. Abdomen is soft, nontender with vertex . Extremities without edema and nontender. Objective Labs Result Diagrams: 07/31/18 07:45 Assessment and Plan Assessment and Plan Assessment and Plan narrative: Forty week 5 day gestation admitted for induction. Fetus has a posterior mediastinal cyst. She has had echo and consultation with Pediatric surgery Dr. Domenic Jennings. He will see the baby post . If the baby has need for transport the baby is to go to [facility]. Time Spent with Patient Total time spent with greater than 50% in coordination of care (as documented) at patient's floor/unit and/or counseling patient:: less than 15 minutes
[2018-07-31] MEDS: LACTATED RINGERS 1,000 ML 100 ML IV ×3 (08:20→23:04)
[2018-07-31] MEDS: OXYTOCIN PREMIX 30 UNIT/500 ML PLAST..BAG IV (08:20)
[2018-07-31 08:55] LABS: Add Manual Diff / Slide Review NO; Basophils Absolute Auto 100 /uL (0-100); Basophils Percent Auto 0.6 % (0-2); Eosinophils Absolute Auto 100 /uL (0-450); Eosinophils Percent Auto 1.2 % (2-4); Hematocrit 37.4 % (36-46); Hemoglobin 12.4 g/dL (12.0-16.0); Lymphocytes Absolute Auto 1700 /uL (1100-4500); Mean Corpuscular HGB Conc 33.1 % (30-36); Mean Corpuscular Volume 87.5 fL (80-100); Monocytes Absolute Auto 800 /uL (0-900); Monocytes Percent Auto 7.5 % (3-14); Neutrophils Absolute Auto 8500 /uL (1500-7000); Neutrophils Percent Auto 75.7 % (50-75); Platelet Count 189 X10^3/uL (150-400); Red Blood Cell Count 4.27 X10^6/uL (4.0-5.2); Red Cell Distribution Width 13.5 % (11.6-14.8); White Blood Cell Count 11.2 X10^3/uL (4.5-11.0)
[2018-07-31] MEDS: fentaNYL 100 MCG/2 ML INJ IV (18:49)
--- NOTE | 2018-08-01 03:53 | P.PCNOB_ITS ---
Events: Labor Induction (post dates) Delivery date: 08/01/18 Induction method: per pitocin protocol Delivery augmentation: rupture of membranes Delivery monitor: external FHT and external uterine Route of delivery: L&D Laceration Description: Periurethral - 1st Degree Delivery repair: chromic (4-0) Estimated blood loss (mL): 200 Anesthesia type: Epidural Narrative: Patient arrived on Labor and delivery for induction for postdates. She received IV Pitocin. Patient received an epidural catheter for pain control. heart tones category 1 to category 2 throughout labor. Patient progressed to complete and delivered spontaneously, over an intact perineum. The was placed on maternal abdomen and after the cord stopped pulsating the cord was clamped cut and cord bloods obtained. the viable female infant had Apgars of 8 and 9, weight is pending. The placenta delivered spontaneously, intact, with 3 vessels. Patient had no cervical, vaginal or perineal tears. She had bilateral periurethral tears. A 4 0 chromic suture was used to stop bleeding on the left perineal tear. Estimated blood loss 200 cc. Both and mother doing well. [place] Baby 1: gender: Female Presentation: vertex position: Right Occiput Anterior Placenta delivery description: Spontaneous cord vessel description: Nuchal Cord score (1 min): 8 score (5 min): 9 Plan for aftercare: routine post vaginal delivery
[2018-08-01] MEDS: IBUPROFEN 600 MG TABLET PO ×2 (08:05→15:30)
[2018-08-01] MEDS: DOCUSATE 250 MG CAPSULE PO (08:05)
[2018-08-02] MEDS: IBUPROFEN 600 MG TABLET PO (05:00)
--- NOTE | 2018-08-02 08:01 | P.DS_ITS ---
History of Present Illness Date Patient Seen: 08/02/18 Time Patient Seen: 08:00 Chief complaint: labor & delivery Narrative: Status post vaginal delivery Discharge Providers Date of admission: 07/31/18 06:50 Discharge Date: 08/02/18 Primary care physician: GEMA Phipps Consults: 07/31/18 07:52 Consult to Anesthesiology Urgent Comment: Consulting Provider: Anesthesiologist Reason for consultation: Epidural Has provider been notified: No 08/01/18 07:11 Consult to Architectural Modeler Routine Comment: Discharge provider: Tamie Moreno MD Summary Discharge Diagnosis: Vaginal delivery Hospital Course: Patient was admitted for induction at 40 weeks. She was started on Pitocin and received an epidural catheter for pain control. She had a spontaneous vaginal delivery with repair of a first-degree periurethral tear. Patient denies any signs or symptoms of preeclampsia. She is ambulatory. Patient is O positive and rubella nonimmune so received rubella vaccine prior to discharge. Viable female infant weighed 7 lb 2 oz, 3251 g. No apparent complications from the posterior mediastinal cyst in the baby. She will follow up with the pediatric surgeon. Exam Vital Signs (past 8 hours): Blood pressure 100/57, pulse of 59, temperature 98.6? Narrative Exam Narrative: Patient's abdomen is soft, nontender. Uterus is firm, at U, nontender. Mild lochia. Extremities without edema and nontender. Objective Labs Result Diagrams: 07/31/18 07:45 Discharge Plan Discharge Plan Patient Disposition: Home Discharge Med Rec/Prescriptions Prescriptions: Continued prenat.vits,irene,mop-lqvw-bqscq [ Vitamin] tablet 1 tab PO DAILY RF: 0 omega-3 fatty acids [Fish Oil Concentrate] 1,000 mg capsule 1,000 mg PO DAILY RF: 0 breast pump [Pump In Style Advanced] device .ROUTE .MEDSUPPLY Qty: 1 RF: 0 Follow up/Referrals: Tamie Moreno MD [Physician] - 1 Month Janneth Maldonado ARNP [Primary Care Provider] - Provider Discharge Instructions Diet: Regular Activity: nothing in vagina for 4 weeks Skin/Wound/Dressing Care Report to your healthcare provider any signs of infection, such as:: chills, fever and increased pain Discharge Data Primary Care Provider: Janneth Maldonado Attending Provider: Foist,Tamie B Admit Date/Time: 07/31/18 06:50
[2018-08-02] MEDS: DOCUSATE 250 MG CAPSULE PO (09:25)
[2018-08-02 09:28] LABS: Add Manual Diff / Slide Review NO; Basophils Absolute Auto 0 /uL (0-100); Basophils Percent Auto 0.4 % (0-2); Eosinophils Absolute Auto 200 /uL (0-450); Eosinophils Percent Auto 1.8 % (2-4); Hematocrit 35.7 % (36-46); Hemoglobin 11.9 g/dL (12.0-16.0); Lymphocytes Absolute Auto 1900 /uL (1100-4500); Mean Corpuscular HGB Conc 33.3 % (30-36); Mean Corpuscular Hemoglobin 29.3 PG (26-34); Mean Corpuscular Volume 88.2 fL (80-100); Monocytes Absolute Auto 700 /uL (0-900); Monocytes Percent Auto 5.5 % (3-14); Neutrophils Absolute Auto 9800 /uL (1500-7000); Neutrophils Percent Auto 77.3 % (50-75); Platelet Count 156 X10^3/uL (150-400); Red Blood Cell Count 4.05 X10^6/uL (4.0-5.2); Red Cell Distribution Width 13.6 % (11.6-14.8); White Blood Cell Count 12.7 X10^3/uL (4.5-11.0)
[2018-08-02 10:07] VITALS: BP 110/68; PULSE 68; TEMP 36.7
== END 2018-08-02 11:45 | disposition home or self-care (01) | DRG 807 ==
PROVIDERS: Admitting Provider Specialist; PCP Internal Medicine; Visit Provider Specialist
DX: O48.0 Post-term pregnancy (principal); Z37.0 Single live birth; O70.0 First degree perineal laceration during delivery; Z3A.40 40 weeks gestation of pregnancy; O35.8XX0 Maternal care for other (suspected) fetal abnormality and damage, not applicable or unspecified
CPT/HCPCS: 01967; 36415; 59050; 59400; 85025; 86850; 86900; 86901; G0379; J2590; J3010